=== PATIENT | male | born 1995 | race Caucasian/White ===

== ENCOUNTER 2017-10-02 13:29 | Emergency (ER) | payer OTHER | END 2017-10-02 14:30 | disposition home or self-care (01) | LOC: M ED 13:29 | DX: K08.89 Other specified disorders of teeth and supporting structures (principal); R68.84 Jaw pain; G50.1 Atypical facial pain; Z87.891 Personal history of nicotine dependence; Z88.0 Allergy status to penicillin; Z88.1 Allergy status to other antibiotic agents | CPT/HCPCS: 99282 ==

== ENCOUNTER 2018-02-11 18:48 | Emergency (ER) | payer OTHER ==
[2018-02-11] MEDS: AZITHROMYCIN 250 MG TAB PO (19:54)
== END 2018-02-11 20:08 | disposition home or self-care (01) ==
LOC: M ED 18:48
DX: J02.0 Streptococcal pharyngitis (principal); Z88.1 Allergy status to other antibiotic agents; Z88.0 Allergy status to penicillin; Z88.2 Allergy status to sulfonamides
CPT/HCPCS: 87880